=== PATIENT | male | born 1935 | race Caucasian/White ===

== ENCOUNTER 2017-07-07 10:39 | Inpatient (IN) | payer MEDICARE, MEDICAID ==
[~2017-07-07] VITALS: Ht 162.6 cm; Wt 72.6 kg
[2017-07-07 12:40] LABS: EOSINOPHILS % 4.6 % (0.0-5.0); HEMATOCRIT. 31.9 % (42.0-52.0); HEMOGLOBIN. 10.5 g/dL (14.0-18.0); LYMPHOCYTES % 9.1 % (20.0-50.0); MEAN CORPUSCULAR HEMOGLOBIN 30.3 pg (28.0-32.0); MEAN CORPUSCULAR VOLUME 92.2 fL (80.0-94.0); MEAN PLATELET VOLUME 8.5 fl (7.4-10.4); MONOCYTES % 7.3 % (2.0-8.0); PLATELET 274 x1000/uL (130-400); RED BLOOD CELL COUNT 3.46 mill/uL (4.7-6.1); RED CELL DISTRIBUTION WIDTH 13.3 % (11.6-14.6)
[2017-07-07 12:50] LABS: CARBON DIOXIDE 23 mEq/L (21-32); CHLORIDE 108 mEq/L (98-107)
[2017-07-07] MEDS ORDERED: DIPHENHYDRAMINE 50MG/ML VIAL IV PRN (17:00)
[2017-07-07] MEDS ORDERED: PIPERACILLIN/TAZ 3.375G PREMIX 50 ML IV SCH (17:00)
[2017-07-07] MEDS ORDERED: MAGNESIUM/ALUMINUM HYDROXIDE/SIMETHICONE 30ML UDC PO PRN (17:00)
[2017-07-07] MEDS ORDERED: DOCUSATE SODIUM 100MG CAPSULE PO PRN (17:00)
[2017-07-07] MEDS ORDERED: NA PHOS,M-B/NA PHOS,DI-BA ENEMA 118ML PR PRN (17:00)
[2017-07-07] MEDS ORDERED: ONDANSETRON HCL 4MG/2ML VIAL IV PRN (17:00)
[2017-07-07] MEDS: HYDROMORPHONE HCL/PF 2MG/ML CPJ IV PRN (17:15)
[2017-07-07] MEDS: CLONIDINE 0.1MG TABLET PO PRN (17:28)
[2017-07-07] MEDS: IPRATROPIUM/ALBUTEROL 0.5-3(2.5)MG/3ML NEB INH PRN (20:13)
[2017-07-07 21:34] VITALS: BP 118/54
[2017-07-07 22:00] VITALS: BP 140/49
[2017-07-08] VITALS (7 sets, daily range): BP systolic 106–169; BP diastolic 49–68
[2017-07-08] MEDS ORDERED: VANCOMYCIN 1250MG in DEXTROSE 5% WATER 250ML IV NR ×2
[2017-07-08] MEDS: PIPERACILLIN/TAZ 2.25G PREMIX 50 ML IV SCH ×5 (00:59→23:28)
[2017-07-08] MEDS: METOPROLOL TARTRATE 25MG TABLET PO SCH ×4 (00:59→22:42)
[2017-07-08] MEDS: HYDROMORPHONE HCL/PF 2MG/ML CPJ IV PRN ×2 (05:15→15:56)
[2017-07-08 06:20] LABS: BASOPHILS % 0.9 % (0.0-2.0); EOSINOPHILS % 5.2 % (0.0-5.0); HEMATOCRIT. 29.9 % (42.0-52.0); LYMPHOCYTES % 10.8 % (20.0-50.0); MEAN CORPUSCULAR HEMOGLOBIN 31.1 pg (28.0-32.0); MEAN CORPUSCULAR VOLUME 92.7 fL (80.0-94.0); MEAN PLATELET VOLUME 8.8 fl (7.4-10.4); MONOCYTES % 8.2 % (2.0-8.0); NEUTROPHILS % 74.9 % (40.0-76.0); PLATELET 292 x1000/uL (130-400); RED BLOOD CELL COUNT 3.23 mill/uL (4.7-6.1); RED CELL DISTRIBUTION WIDTH 13.4 % (11.6-14.6)
[2017-07-08 06:44] LABS: CARBON DIOXIDE 23 mEq/L (21-32); CHLORIDE 107 mEq/L (98-107)
[2017-07-08 06:51] LABS: HDL CHOLESTEROL 38 mg/dL (40-59); LDL CHOLESTEROL 50 mg/dL (5-100); T4 FREE 1.18 ng/dL (0.76-1.46)
[2017-07-08] MEDS: ASPIRIN 81MG EC TABLET PO SCH (10:37)
[2017-07-08] MEDS: ENOXAPARIN 40MG/0.4ML SYR SUBCUT SCH (10:40)
[2017-07-08] MEDS ORDERED: DEXTROSE 50% WATER 50ML SYRINGE IV PRN (11:15)
[2017-07-08] MEDS: BLOOD SUGAR DIAGNOSTIC STRIP TEST SCH ×3 (12:51→22:20)
[2017-07-08] MEDS: HYDROCODONE/ACETAMINOPHEN 5/325MG TABLET PO PRN (13:03)
[2017-07-08] MEDS: INSULIN LISPRO 100 UNITS/ML SUBCUT SCH ×3 (13:03→22:51)
[2017-07-08] MEDS: CLONIDINE 0.1MG TABLET PO PRN (13:20)
[2017-07-08] MEDS: VANCOMYCIN 1 G PREMIX 200 ML IV SCH (19:02)
[2017-07-09] VITALS: BP 136/54
[2017-07-09] MEDS ORDERED: VANCOMYCIN 1 G PREMIX 200 ML IV SCH (03:00)
[2017-07-09 04:00] VITALS: BP 144/43
[2017-07-09] MEDS: PIPERACILLIN/TAZ 2.25G PREMIX 50 ML IV SCH (06:05)
[2017-07-09] MEDS: BLOOD SUGAR DIAGNOSTIC STRIP TEST SCH ×4 (06:29→22:34)
[2017-07-09 08:00] VITALS: BP 151/54
[2017-07-09] MEDS: METOPROLOL TARTRATE 25MG TABLET PO SCH ×2 (08:35→22:34)
[2017-07-09] MEDS: ASPIRIN 81MG EC TABLET PO SCH (09:07)
[2017-07-09] MEDS: ENOXAPARIN 40MG/0.4ML SYR SUBCUT SCH (09:08)
[2017-07-09] MEDS: INSULIN LISPRO 100 UNITS/ML SUBCUT SCH ×4 (09:21→23:17)
[2017-07-09 12:00] VITALS: BP 171/68
[2017-07-09] MEDS: PIPERACILLIN/TAZ 3.375G PREMIX 50 ML IV SCH ×2 (13:43→21:21)
[2017-07-09 16:00] VITALS: BP 163/61
[2017-07-09] MEDS: ACETAMINOPHEN 325MG TABLET PO PRN (16:24)
[2017-07-09] MEDS: VANCOMYCIN 1 G PREMIX 200 ML IV SCH (17:52)
[2017-07-09] MEDS: HYDROCODONE/ACETAMINOPHEN 5/325MG TABLET PO PRN (17:59)
[2017-07-09 20:00] VITALS: BP 138/56
[2017-07-10] VITALS: BP 154/63
[2017-07-10] MEDS: PIPERACILLIN/TAZ 3.375G PREMIX 50 ML IV SCH ×3 (05:27→21:26)
[2017-07-10] MEDS: IPRATROPIUM/ALBUTEROL 0.5-3(2.5)MG/3ML NEB INH PRN ×2 (05:59→22:24)
[2017-07-10 06:52] LABS: BASOPHILS % 0.9 % (0.0-2.0); EOSINOPHILS % 7.1 % (0.0-5.0); HEMATOCRIT. 29.8 % (42.0-52.0); LYMPHOCYTES % 12.3 % (20.0-50.0); MEAN CORPUSCULAR HEMOGLOBIN 30.5 pg (28.0-32.0); MEAN CORPUSCULAR VOLUME 91.3 fL (80.0-94.0); MEAN PLATELET VOLUME 8.6 fl (7.4-10.4); MONOCYTES % 11.9 % (2.0-8.0); NEUTROPHILS % 67.8 % (40.0-76.0); PLATELET 302 x1000/uL (130-400); RED BLOOD CELL COUNT 3.26 mill/uL (4.7-6.1); RED CELL DISTRIBUTION WIDTH 13.5 % (11.6-14.6)
[2017-07-10] MEDS: BLOOD SUGAR DIAGNOSTIC STRIP TEST SCH ×4 (07:53→22:14)
[2017-07-10 08:00] VITALS: BP 120/48
[2017-07-10] MEDS: ENOXAPARIN 40MG/0.4ML SYR SUBCUT SCH (08:50)
[2017-07-10] MEDS: METOPROLOL TARTRATE 25MG TABLET PO SCH ×2 (08:51→22:15)
[2017-07-10] MEDS: ASPIRIN 81MG EC TABLET PO SCH (08:51)
[2017-07-10] MEDS: INSULIN LISPRO 100 UNITS/ML SUBCUT SCH ×4 (08:54→22:59)
[2017-07-10] MEDS: ACETAMINOPHEN 325MG TABLET PO PRN (10:49)
[2017-07-10 12:00] VITALS: BP 159/56
[2017-07-10] MEDS: LACTATED RINGERS 1,000 ML IV SCH (12:31)
[2017-07-10 16:00] VITALS: BP 143/54
[2017-07-10] MEDS: VANCOMYCIN 1 G PREMIX 200 ML IV SCH (17:51)
[2017-07-10 20:00] VITALS: BP 144/60
[2017-07-11] VITALS: BP 135/51
[2017-07-11] MEDS: PIPERACILLIN/TAZ 3.375G PREMIX 50 ML IV SCH ×3 (05:48→21:54)
[2017-07-11] MEDS: BLOOD SUGAR DIAGNOSTIC STRIP TEST SCH ×4 (07:20→21:54)
[2017-07-11] MEDS ORDERED: IODIXANOL 320MG/ML 100 ML BOTTLE IV ONE (07:25)
[2017-07-11] MEDS ORDERED: LIDOCAINE HCL 1% 20ML VIAL (Pyxis) INJ ONE (07:26)
[2017-07-11] MEDS ORDERED: MIDAZOLAM HCL 2 MG/2 ML VIAL ONE (07:41)
[2017-07-11] MEDS ORDERED: FENTANYL CITRATE/PF 50MCG/ML 2ML VIAL ONE (07:41)
[2017-07-11] MEDS: INSULIN LISPRO 100 UNITS/ML SUBCUT SCH ×4 (07:50→22:43)
[2017-07-11] MEDS ORDERED: HEPARIN SODIUM 1,000 UNIT/1ML VIAL IV ONE ×2 (08:17→08:27)
[2017-07-11] MEDS ORDERED: IOVERSOL 240MG/ML 100ML BOTTLE IV ONE (08:20)
[2017-07-11 09:30] VITALS: BP 155/55
[2017-07-11] MEDS: ENOXAPARIN 40MG/0.4ML SYR SUBCUT SCH (10:16)
[2017-07-11] MEDS: METOPROLOL TARTRATE 25MG TABLET PO SCH ×2 (10:17→21:53)
[2017-07-11] MEDS: ASPIRIN 81MG EC TABLET PO SCH (10:17)
[2017-07-11] MEDS: CLOPIDOGREL 75MG TABLET PO SCH (10:17)
[2017-07-11 12:00] VITALS: BP 158/58
[2017-07-11 16:00] VITALS: BP 137/43
[2017-07-11] MEDS: VANCOMYCIN 1 G PREMIX 200 ML IV SCH (17:34)
[2017-07-11 20:00] VITALS: BP 125/51
[2017-07-11] MEDS: LACTATED RINGERS 1,000 ML IV SCH (21:53)
[2017-07-12] VITALS: BP 109/52
[2017-07-12 04:00] VITALS: BP 153/59
[2017-07-12] MEDS: PIPERACILLIN/TAZ 3.375G PREMIX 50 ML IV SCH ×2 (05:21→14:00)
[2017-07-12] MEDS: BLOOD SUGAR DIAGNOSTIC STRIP TEST SCH ×3 (06:16→17:20)
[2017-07-12] MEDS: INSULIN LISPRO 100 UNITS/ML SUBCUT SCH ×3 (07:50→17:50)
[2017-07-12 08:00] VITALS: BP 165/51
[2017-07-12] MEDS: CLOPIDOGREL 75MG TABLET PO SCH (09:48)
[2017-07-12] MEDS: ASPIRIN 81MG EC TABLET PO SCH (09:48)
[2017-07-12] MEDS: METOPROLOL TARTRATE 25MG TABLET PO SCH (09:49)
[2017-07-12] MEDS: ENOXAPARIN 40MG/0.4ML SYR SUBCUT SCH (09:51)
[2017-07-12 12:00] VITALS: BP 158/52
[2017-07-12 16:00] VITALS: BP 156/54
[2017-07-12 16:04] VITALS: BP 165/51
[2017-07-12] MEDS: VANCOMYCIN 1 G PREMIX 200 ML IV SCH (18:00)
== END 2017-07-12 19:45 | DRG 253 ==
LOC: ER 11:52 → 6EST 16:13 → ENRESERV 20:21
PROVIDERS: ADMIT Hospitalist; ATTEND Hospitalist
PROC: 047L3ZZ Dilation of Left Femoral Artery, Percutaneous Approach (ICD-10-PCS; principal; 2017-07-11)
PROC: 047S3ZZ Dilation of Left Posterior Tibial Artery, Percutaneous Approach (ICD-10-PCS; 2017-07-11)
PROC: 047N3ZZ Dilation of Left Popliteal Artery, Percutaneous Approach (ICD-10-PCS; 2017-07-11)
DX: E11.51 Type 2 diabetes mellitus with diabetic peripheral angiopathy without gangrene (principal); N17.9 Acute kidney failure, unspecified; E11.621 Type 2 diabetes mellitus with foot ulcer; E11.22 Type 2 diabetes mellitus with diabetic chronic kidney disease; L97.529 Non-pressure chronic ulcer of other part of left foot with unspecified severity; D64.9 Anemia, unspecified; I12.9 Hypertensive chronic kidney disease with stage 1 through stage 4 chronic kidney disease, or unspecified chronic kidney disease; N18.9 Chronic kidney disease, unspecified; E78.00 Pure hypercholesterolemia, unspecified; E78.5 Hyperlipidemia, unspecified; Z89.511 Acquired absence of right leg below knee
CPT/HCPCS: 36415; 37224; 73620; 75710; 80048; 80053; 80061; 80202; 82962; 84439; 84443; 85025; 85347; 85651; 93923; 93970; 94640; 94664; 96374; 99285; C1725; C1760; C1769; C1887; C1893; C1894; J1170; J1644; J1650; J1815; J2250; J2543; J3010; J3370; J3490; J7030; J7040; J7060; J7120; J7620; Q9967

== ENCOUNTER 2018-11-25 02:50 | Inpatient (IN) | payer MEDICAID, MEDICARE ==
[~2018-11-25] VITALS: Ht 167.6 cm; Wt 71.2 kg
[2018-11-25] MEDS ORDERED: MORPHINE SULFATE 4 MG/ML CPJ (NOT FOR IM USE) IV ONE (07:00)
[2018-11-25] MEDS ORDERED: ONDANSETRON HCL 4MG/2ML INJ IV ONE (07:00)
[2018-11-25 07:13] LABS: CHLORIDE 108 mEq/L (98-107)
[2018-11-25 07:14] LABS: PROTHROMBIN TIME 10.4 sec (9.1-11.1)
[2018-11-25 07:26] LABS: BASOPHILS % 0.6 % (0.0-2.0); EOSINOPHILS % 0.6 % (0.0-5.0); HEMATOCRIT. 39.1 % (42.0-52.0); HEMOGLOBIN. 12.8 g/dL (14.0-18.0); LYMPHOCYTES % 7.7 % (20.0-50.0); MEAN CORPUSCULAR HEMOGLOBIN 30.3 pg (28.0-32.0); MEAN CORPUSCULAR VOLUME 92.8 fL (80.0-94.0); MEAN PLATELET VOLUME 10.1 fl (7.4-10.4); MONOCYTES % 6.1 % (2.0-8.0); PLATELET 225 x1000/uL (130-400); RED BLOOD CELL COUNT 4.22 mill/uL (4.7-6.1); RED CELL DISTRIBUTION WIDTH 14.5 % (11.6-14.6)
[2018-11-25 11:10] LABS: CLARITY URINE CLEAR (CLEAR); COLOR URINE YELLOW (YELLOW); KETONES URINE TRACE (NEGATIVE); LEUKOCYTE ESTERASE URINE TRACE (NEGATIVE); NITRITE URINE NEGATIVE (NEGATIVE); OCCULT BLOOD URINE NEGATIVE (NEGATIVE); PROTEIN URINE 2+ (NEGATIVE); SPECIFIC GRAVITY URINE 1.017 (1.005-1.030); UROBILINOGEN URINE 0.2 E.U./dL (0.2-1.0)
[2018-11-25] MEDS ORDERED: PANTOPRAZOLE SODIUM 40 MG/VIAL IV ONE (11:45)
[2018-11-25] MEDS ORDERED: DEXT 5%/0.45% NACL 1000ML 1,000 ML IV SCH (15:59)
[2018-11-25] MEDS ORDERED: ONDANSETRON HCL 4MG/2ML INJ IV PRN (16:00)
[2018-11-25] MEDS ORDERED: METOCLOPRAMIDE HCL 10MG/2ML VIAL IV SCH (17:00)
[2018-11-25] MEDS ORDERED: PANTOPRAZOLE SODIUM 40 MG/VIAL IV SCH (17:00)
[2018-11-25 20:00] VITALS: BP 159/65
[2018-11-25] MEDS: DEXT 5%/0.45% NACL 1000ML 1,000 ML IV SCH (20:12)
[2018-11-25] MEDS: METOCLOPRAMIDE HCL 10MG/2ML VIAL IV SCH (21:32)
[2018-11-25] MEDS: PANTOPRAZOLE SODIUM 40 MG/VIAL IV SCH (21:33)
[2018-11-25] MEDS ORDERED: GABA-290 MT (22:37)
[2018-11-25] MEDS ORDERED: METO25TA6 MT (22:37)
[2018-11-25] MEDS ORDERED: DEXTROSE 50% WATER 50ML SYRINGE IV PRN (23:45)
[2018-11-26] VITALS: BP 168/68
[2018-11-26] MEDS: CLONIDINE 0.1MG TABLET PO PRN (01:51)
[2018-11-26 04:00] VITALS: BP 128/48
[2018-11-26] MEDS: METOCLOPRAMIDE HCL 10MG/2ML VIAL IV SCH ×3 (05:22→22:06)
[2018-11-26] MEDS: BLOOD SUGAR DIAGNOSTIC STRIP TEST SCH ×4 (06:21→20:18)
[2018-11-26] MEDS: INSULIN LISPRO (MEDIUM DOSE) 100 UNITS/ML SUBCUT SCH ×4 (06:26→20:32)
[2018-11-26] MEDS ORDERED: INSULIN LISPRO 100 UNITS/ML SUBCUT SCH (07:20)
[2018-11-26] MEDS ORDERED: INSULIN REGULAR (HUMULIN R) 300UNITS/3ML SUBCUT SCH (07:20)
[2018-11-26 08:00] VITALS: BP 123/53
[2018-11-26] MEDS: DEXT 5%/0.45% NACL 1000ML 1,000 ML IV SCH ×2 (08:50→19:32)
[2018-11-26] MEDS: PANTOPRAZOLE SODIUM 40 MG/VIAL IV SCH ×2 (09:59→20:12)
[2018-11-26 12:00] VITALS: BP 120/56
[2018-11-26 16:00] VITALS: BP 143/63
[2018-11-26 20:00] VITALS: BP 139/54
[2018-11-26] MEDS: INSULIN GLARGINE UD 100 UNITS/ML SYR SUBCUT SCH (22:05)
[2018-11-27] VITALS: BP 144/50
[2018-11-27 04:00] VITALS: BP 156/89
[2018-11-27] MEDS: METOCLOPRAMIDE HCL 10MG/2ML VIAL IV SCH ×3 (05:56→22:57)
[2018-11-27] MEDS: BLOOD SUGAR DIAGNOSTIC STRIP TEST SCH ×4 (07:20→21:00)
[2018-11-27 07:59] LABS: EOSINOPHILS % 7.8 % (0.0-5.0); HEMATOCRIT. 34.3 % (42.0-52.0); HEMOGLOBIN. 11.3 g/dL (14.0-18.0); LYMPHOCYTES % 19.1 % (20.0-50.0); MEAN CORPUSCULAR HEMOGLOBIN 30.4 pg (28.0-32.0); MEAN CORPUSCULAR VOLUME 92.3 fL (80.0-94.0); MEAN PLATELET VOLUME 9.5 fl (7.4-10.4); MONOCYTES % 9.1 % (2.0-8.0); PLATELET 192 x1000/uL (130-400); RED BLOOD CELL COUNT 3.71 mill/uL (4.7-6.1); RED CELL DISTRIBUTION WIDTH 14.1 % (11.6-14.6)
[2018-11-27 08:00] VITALS: BP 171/66
[2018-11-27] MEDS: CLONIDINE 0.1MG TABLET PO PRN (08:06)
[2018-11-27] MEDS: PANTOPRAZOLE SODIUM 40 MG/VIAL IV SCH ×2 (08:06→22:57)
[2018-11-27] MEDS: INSULIN LISPRO (MEDIUM DOSE) 100 UNITS/ML SUBCUT SCH ×4 (08:07→23:09)
[2018-11-27] MEDS: DEXT 5%/0.45% NACL 1000ML 1,000 ML IV SCH ×2 (10:38→23:16)
[2018-11-27 12:00] VITALS: BP 143/68
[2018-11-27] MEDS ORDERED: CLONIDINE 0.1MG TABLET PO PRN (13:00)
[2018-11-27 16:00] VITALS: BP 117/47
[2018-11-27 20:00] VITALS: BP 152/91
[2018-11-27] MEDS: INSULIN GLARGINE UD 100 UNITS/ML SYR SUBCUT SCH (23:09)
[2018-11-28] VITALS: BP 166/65
[2018-11-28 04:00] VITALS: BP 158/58
[2018-11-28 07:11] LABS: BASOPHILS % 1.2 % (0.0-2.0); EOSINOPHILS % 7.8 % (0.0-5.0); HEMATOCRIT. 32.7 % (42.0-52.0); HEMOGLOBIN. 11.1 g/dL (14.0-18.0); LYMPHOCYTES % 22.1 % (20.0-50.0); MEAN CORPUSCULAR HEMOGLOBIN 30.9 pg (28.0-32.0); MEAN CORPUSCULAR VOLUME 91.4 fL (80.0-94.0); MEAN PLATELET VOLUME 9.5 fl (7.4-10.4); MONOCYTES % 10.2 % (2.0-8.0); NEUTROPHILS % 58.7 % (40.0-76.0); PLATELET 197 x1000/uL (130-400); RED BLOOD CELL COUNT 3.58 mill/uL (4.7-6.1); RED CELL DISTRIBUTION WIDTH 13.8 % (11.6-14.6)
[2018-11-28] MEDS: BLOOD SUGAR DIAGNOSTIC STRIP TEST SCH ×3 (07:34→20:46)
[2018-11-28] MEDS: INSULIN LISPRO (MEDIUM DOSE) 100 UNITS/ML SUBCUT SCH ×3 (07:34→21:00)
[2018-11-28] MEDS: METOCLOPRAMIDE HCL 10MG/2ML VIAL IV SCH ×3 (07:35→20:45)
[2018-11-28 08:00] VITALS: BP 169/67
[2018-11-28] MEDS: PANTOPRAZOLE SODIUM 40 MG/VIAL IV SCH ×2 (08:48→20:45)
[2018-11-28] MEDS: HYDROMORPHONE HCL/PF 2MG/ML CPJ IV PRN ×2 (08:52→17:26)
[2018-11-28 12:00] VITALS: BP_SYST 123; BP_SYST 137; BP_DIAS 57
[2018-11-28 16:00] VITALS: BP 123/57
[2018-11-28 20:00] VITALS: BP 172/57
[2018-11-28] MEDS: INSULIN GLARGINE UD 100 UNITS/ML SYR SUBCUT SCH (21:01)
[2018-11-28] MEDS: CLONIDINE 0.1MG TABLET PO PRN (21:16)
[2018-11-29] VITALS: BP 156/58
[2018-11-29] MEDS: DEXT 5%/0.45% NACL 1000ML 1,000 ML IV SCH (02:25)
[2018-11-29 04:00] VITALS: BP 149/56
[2018-11-29] MEDS: METOCLOPRAMIDE HCL 10MG/2ML VIAL IV SCH ×2 (06:27→14:41)
[2018-11-29] MEDS: BLOOD SUGAR DIAGNOSTIC STRIP TEST SCH ×2 (06:32→12:49)
[2018-11-29] MEDS: INSULIN LISPRO (MEDIUM DOSE) 100 UNITS/ML SUBCUT SCH ×2 (06:53→13:27)
[2018-11-29 08:00] VITALS: BP 141/55
[2018-11-29] MEDS: PANTOPRAZOLE SODIUM 40 MG/VIAL IV SCH (09:31)
[2018-11-29 11:57] VITALS: BP 141/55
[2018-11-29 12:00] VITALS: BP 158/55
[2018-11-29] MEDS ORDERED: BISACODYL 10MG SUPP PR NR (13:14)
[2018-11-29] MEDS ORDERED: SORBITOL 70% SOLN 30ML PO NR (13:15)
[2018-11-29 15:03] VITALS: BP 150/60
== END 2018-11-29 15:10 | DRG 377 ==
LOC: ER 02:50 → 6EST 11:55 → ENRESERV 14:52 → ER 19:08
PROVIDERS: ADMIT Internal Medicine; ATTEND Internal Medicine
DX: K92.2 Gastrointestinal hemorrhage, unspecified (principal); N17.0 Acute kidney failure with tubular necrosis; I13.0 Hypertensive heart and chronic kidney disease with heart failure and stage 1 through stage 4 chronic kidney disease, or unspecified chronic kidney disease; E78.5 Hyperlipidemia, unspecified; G54.6 Phantom limb syndrome with pain; I25.10 Atherosclerotic heart disease of native coronary artery without angina pectoris; E11.22 Type 2 diabetes mellitus with diabetic chronic kidney disease; E11.51 Type 2 diabetes mellitus with diabetic peripheral angiopathy without gangrene; I50.9 Heart failure, unspecified; N18.9 Chronic kidney disease, unspecified; Z89.512 Acquired absence of left leg below knee; Z89.511 Acquired absence of right leg below knee; E11.43 Type 2 diabetes mellitus with diabetic autonomic (poly)neuropathy; K31.84 Gastroparesis; Z79.4 Long term (current) use of insulin
CPT/HCPCS: 36415; 71045; 74176; 76700; 80048; 82962; 83605; 83880; 84484; 85018; 93005; 96372; 96374; 96375; 99285; C9113; J1170; J1815; J2270; J2405; J2765